=== PATIENT | male | born 1955 | race Caucasian/White ===

== ENCOUNTER → 2017-03-12 | Outpatient (REF) | payer OTHER ==
[2017-03-12 14:37] LABS: TOTAL PROTEIN 7.1 GM/DL (6.4-8.2)
[2017-03-12 14:41] LABS: FOLATE 22.2 NG/ML (>5.4); VITAMIN B12 LEVEL 774 PG/ML (247-911)
[2017-03-17 12:00] LABS: ALBUMIN 4.34 GM/DL (3.29-5.55); ALBUMIN % 61.1 % (55.8-66.1); GAMMA GLOBULIN % 12.4 % (11.1-18.8)
== END ==
LOC: M LABNEURO 08:57
PROVIDERS: ATTEND Psychiatry & Neurology Neurology
DX: E11.40 Type 2 diabetes mellitus with diabetic neuropathy, unspecified (principal)

== ENCOUNTER → 2018-08-27 | Outpatient (REF) | payer OTHER ==
[2018-08-31 14:17] LABS: CERULOPLASMIN 25.9 mg/dL (16.0-31.0); VITAMIN B1 LEVEL WHOLE BLOOD 138.9 nmol/L (66.5-200.0); VITAMIN B6,PYRIDOXAL PHOSPHATE 20.8 ug/L (5.3-46.7)
== END ==
LOC: M LABNEURO 11:47
PROVIDERS: ATTEND Psychiatry & Neurology Neurology
DX: R26.9 Unspecified abnormalities of gait and mobility (principal); R26.81 Unsteadiness on feet

== ENCOUNTER 2021-03-03 18:18 | Emergency (ER) | payer OTHER, SELFPAY ==
[~2021-03-03] VITALS: Ht 180.3 cm; Wt 90.4 kg
[2021-03-03] MEDS ORDERED: HYDR-3713 (18:25)
[2021-03-03] MEDS ORDERED: ONDA-83 (18:25)
[2021-03-03] MEDS ORDERED: ATOR40TA75 (18:25)
[2021-03-03] MEDS ORDERED: NAPR-885 (18:25)
[2021-03-03] MEDS ORDERED: GABA-1171 (18:25)
[2021-03-03] MEDS ORDERED: NS 1,000 ML IV ONE ×2 (20:10→22:30)
[2021-03-03] MEDS ORDERED: KETOROLAC 30 MG/ML 1ML VIAL IV ONE (20:20)
[2021-03-03 20:53] LABS: BASO % 0.2 % (0.0-1.0); EOS % 0.1 % (0.0-3.0); HEMATOCRIT 48.6 % (42.0-52.0); HEMOGLOBIN 15.8 g/dl (13.5-17.5); LYMPH # 1.2 10^3/uL (1.5-5.0); LYMPH % 9.1 % (24.0-44.0); MEAN CORPUSCULAR HEMOGLOBIN 29.5 pg (27.0-33.0); MEAN CORPUSCULAR HGB CONC 32.5 g/dl (32.0-36.5); MEAN CORPUSCULAR VOLUME 90.7 fl (80.0-96.0); MONO # 1.2 10^3/uL (0.0-0.8); MONO % 8.6 % (2.0-8.0); NEUTROPHILS # 11.1 10^3/uL (1.5-8.5); NEUTROPHILS % 81.6 % (36.0-66.0); PLATELET COUNT, AUTOMATED 124 10^3/uL (150-450); RED BLOOD COUNT 5.36 10^6/uL (4.30-6.10); WHITE BLOOD COUNT 13.6 10^3/uL (4.0-10.0)
[2021-03-03 21:18] LABS: ALBUMIN 3.7 GM/DL (3.2-5.2); BILIRUBIN,DIRECT 0.4 MG/DL (0.0-0.2); BILIRUBIN,TOTAL 2.2 MG/DL (0.2-1.0); TOTAL PROTEIN 6.5 GM/DL (6.4-8.2)
--- NOTE | 2021-03-03 22:02 | REPVR ---
PROCEDURE INFORMATION: Exam: US Retroperitoneal Limited, Kidneys Exam date and time: 03/03/2021 8:26 PM Age: 65 years old Clinical indication: Abdominal pain; Additional info: Possible L ureteral stone, 4 days pain, ct--thickened ureter TECHNIQUE: Imaging protocol: Real-time ultrasound of the retroperitoneum with image documentation. Examination was focused on the kidneys. COMPARISON: No relevant prior studies available. FINDINGS: Right kidney: Right kidney measures 11.1 x 6.1 x 6.5 cm. Small cyst in the anterior aspect of the right kidney measures 1.6 x 1.8 x 1.5 cm. Left kidney: Left kidney measures 12.5 x 5.6 x 6 cm. Bladder: Bladder unremarkable. Ureteral jets not visualized. IMPRESSION: Small right renal cyst. Otherwise unremarkable. Electronically signed by: Jewel Oliveira On 03/03/2021 22:01:34 PM
[2021-03-03] MEDS ORDERED: cefTRIAXone SOD 1 GM in D5W MINI-BAG PLUS 50 ML IV ONE (22:30)
[2021-03-03] MEDS ORDERED: BACT800T5 PO (23:07)
[2021-03-04] VITALS: BP 146/80
== END 2021-03-04 00:13 | disposition home or self-care (01) ==
LOC: M ED 18:18
DX: D72.829 Elevated white blood cell count, unspecified (principal); R10.9 Unspecified abdominal pain; Z87.442 Personal history of urinary calculi; Z86.73 Personal history of transient ischemic attack (TIA), and cerebral infarction without residual deficits; F17.200 Nicotine dependence, unspecified, uncomplicated; N28.1 Cyst of kidney, acquired
CPT/HCPCS: 36415; 76775; 80047; 80076; 81001; 83690; 85025; 96365; 96375; 99284; J0696; J1885

== ENCOUNTER 2023-11-12 06:56 | Day surgery (SDC) | payer OTHER ==
[~2023-11-12] VITALS: Ht 180.3 cm; Wt 83.9 kg
[~2023-11-12 06:56] MED LIST: ATOR40TA75; BACT800T5 PO; CLOP75TA99 PO; FLOM0.4C39 PO; GABA-1171; HYDR-3713; NAPR-885; ONDA-83
[2023-11-12] MEDS ORDERED: LR 1,000 ML IV SCH ×2 (07:50→10:05)
[2023-11-12] MEDS ORDERED: fentaNYL 100 MCG/2 ML INJECTION As Ordered ONE (08:26)
[2023-11-12] MEDS ORDERED: MIDAZOLAM INJ 2MG/2ML VIAL As Ordered ONE (08:26)
[2023-11-12] MEDS ORDERED: ONDANSETRON 4MG 2ML VIAL As Ordered ONE (08:27)
[2023-11-12] MEDS ORDERED: propofoL 200 MG/20 ML VIAL As Ordered ONE (08:27)
[2023-11-12] MEDS ORDERED: LIDOCAINE 2% 100MG/5ML SDV (FOR ANES.) As Ordered ONE (08:27)
[2023-11-12] MEDS ORDERED: SILVER NITRATE APPLICATOR (1 = QTY 10) As Ordered ONE (09:03)
[2023-11-12] MEDS ORDERED: THROMBIN 5,000 UNITS VIAL As Ordered ONE (09:03)
[2023-11-12] MEDS ORDERED: PHENYLEPHRINE 0.5% NASAL SPRAY 15 ML As Ordered ONE (09:03)
[2023-11-12] MEDS: CIPRODEX OTIC SUSP 7.5ML As Ordered ONE (09:56)
[2023-11-12] MEDS: OXYMETAZOLINE 0.05% NASAL SPRAY (AFRIN) As Ordered ONE (09:57)
[2023-11-12] MEDS ORDERED: fentaNYL 100 MCG/2 ML INJECTION IV PRN (10:05)
[2023-11-12] MEDS ORDERED: oxyCODONE 5MG TAB PO PRN (10:05)
[2023-11-12] MEDS ORDERED: ONDANSETRON 4MG 2ML VIAL IV PRN (10:05)
[2023-11-12] MEDS ORDERED: HYDROMORPHONE HCL 0.5 MG/ 0.5 ML SYRINGE IV PRN (10:05)
[2023-11-12] MEDS ORDERED: GLYCOPYRROLATE INJ 0.2 MG/ML 2 ML VIAL As Ordered ONE (10:47)
[2023-11-12 11:40] VITALS: BP 135/78; TEMP 97.3; O2SAT 94
== END 2023-11-12 12:10 | disposition home or self-care (01) ==
LOC: M SDC 06:56
PROVIDERS: ATTEND Otolaryngology
DX: H69.83 Other specified disorders of Eustachian tube, bilateral (principal); J34.2 Deviated nasal septum; J31.0 Chronic rhinitis; H93.19 Tinnitus, unspecified ear; I25.2 Old myocardial infarction; G47.30 Sleep apnea, unspecified; Z79.899 Other long term (current) drug therapy; Z79.82 Long term (current) use of aspirin; Z79.02 Long term (current) use of antithrombotics/antiplatelets; Z95.5 Presence of coronary angioplasty implant and graft; Z86.73 Personal history of transient ischemic attack (TIA), and cerebral infarction without residual deficits; F17.210 Nicotine dependence, cigarettes, uncomplicated
CPT/HCPCS: 31231; 69436; J1100; J2250; J2405; J3010